=== PATIENT | female | born 1945 | race Caucasian/White ===

== ENCOUNTER 2017-03-30 13:09 | Emergency (ER) | payer OTHER, MEDICARE ==
[~2017-03-30] VITALS: Ht 154.9 cm; Wt 48.8 kg
[2017-03-30 17:21] LABS: HEMATOCRIT 39.8 % (36.0-46.0); HEMOGLOBIN 13.1 G/DL (11.9-15.5); MCHC 32.9 G/DL (30.0-36.0); MCV 94.3 FL (83-99); PLATELET COUNT 362 K/uL (156-360); RBC DIS.WIDTH-CV 12.4 % (11.8-14.6); RED BLOOD COUNT 4.22 M/uL (3.80-5.20)
[2017-03-30 17:30] LABS: ALBUMIN 3.6 g/dL (3.2-4.8); CHLORIDE 104 mEq/L (99-109); POTASSIUM 3.8 mEq/L (3.7-5.4); SODIUM 141 mEq/L (136-147)
[2017-03-30 17:32] LABS: GLUCOSE 102 mg/dL (70-99); TOTAL PROTEIN 7.1 g/dL (6.4-8.3)
[2017-03-30 17:34] LABS: TOTAL BILIRUBIN 0.3 mg/dL (0.0-1.0)
[2017-03-30 17:35] LABS: SERUM ETHYL ALCOHOL < 10 mg/dL
[2017-03-30 17:36] LABS: ALKALINE PHOSPHATASE 81 IU/L (3-129); CREATININE 0.7 mg/dL (0.6-1.3); GFR ESTIMATE (CALCULATED) > 59 mL/min/
[2017-03-30 17:37] LABS: AST (GOT) 22 IU/L (2-34); UREA NITROGEN (BUN) 15 mg/dL (9-23)
[2017-03-30 17:39] LABS: ALT (GPT) 23 IU/L (3-49)
[2017-03-30 19:17] LABS: APPEARANCE CLEAR ((CLEAR)); BILIRUBIN NEGATIVE; BLOOD NEGATIVE; COLOR YELLOW ((YELLOW)); GLUCOSE (STRIP) NEGATIVE; KETONES NEGATIVE; LEUKOCYTES TRACE; NITRITE NEGATIVE; PROTEIN (STRIP) NEGATIVE; SPECIFIC GRAVITY 1.011 (1.000-1.030); UROBILINOGEN 0.2 MG/DL (0.2-1.0)
[2017-03-30 19:20] LABS: BACTERIA NONE SEEN /HPF; EPITHELIAL CELLS NONE SEEN /HPF; MUCUS TRACE /LPF; RED BLOOD CELLS 0-5 /HPF (0-5); WHITE BLOOD CELLS 0-5 /HPF (0-5)
[2017-03-30 19:26] LABS: AMPHETAMINE NEGATIVE (500 ng/mL); BARBITURATES NEGATIVE (200 ng/mL); BENZODIAZEPINES NEGATIVE (150 ng/mL); BUPRENORPHINE NEGATIVE (10 ng/mL); COCAINE NEGATIVE (150 ng/mL); METHADONE NEGATIVE (200 ng/mL); METHAMPHETAMINE NEGATIVE (500 ng/mL); OPIATES (MORPHINE) NEGATIVE (100 ng/mL); OXYCODONE NEGATIVE (100 ng/mL); PHENCYCLIDINE NEGATIVE (25 ng/mL); PROPOXYPHENE NEGATIVE (300 ng/mL); THC CANNABINOIDS NEGATIVE (50 ng/mL); TRICYCLIC ANTIDEPRESSANTS NEGATIVE (300 ng/mL)
[2017-03-30 20:25] VITALS: BP 133/87
== END 2017-03-30 20:27 ==
LOC: EME 13:09
PROVIDERS: Emergency Medicine
DX: F41.1 Generalized anxiety disorder (principal); F43.25 Adjustment disorder with mixed disturbance of emotions and conduct; F22 Delusional disorders; R59.9 Enlarged lymph nodes, unspecified
CPT/HCPCS: 80053; 81003; 85027; 90837; 99281; 99284; G0480